=== PATIENT | female | born 1985 | race Caucasian/White ===

== ENCOUNTER 2024-01-28 14:00 | Emergency (ER) | payer OTHER, SELFPAY ==
[2024-01-28] VITALS (12 sets, daily range): BP systolic 111; BP diastolic 73; PULSE 73–107; RESP 16–23; TEMP 37.1; O2SAT 94–97; BMI 59.7
--- NOTE | 2024-01-28 14:25 | ECG_ITS ---
The [facility] Test Date: 2024-01-28 Pat Name: LILLY VALLEJO Department: Room: - Gender: Female [employer]: : 1985 Requested By: FRANCISCO BRYANT Order Number: [id number] Reading MD: MAHI RASMUSSEN Measurements Intervals [place] Rate: 94 P: 33 [place]: 150 QRS: 41 QRSD: 96 T: 67 QT: 346 QTc: 398 Interpretive Statements 1100 Sinus rhythm 9110 normal ECG No previous ECG available for comparison Electronically Signed On 01-28-2024 23:14:40 EDT by MAHI RASMUSSEN
--- NOTE | 2024-01-28 14:26 | ED.SOB1 ---
HPI - SOB/Dyspnea General Chief Complaint: Shortness of Breath/Dyspnea Stated Complaint: SHORTNESS OF BREATH Time Seen by Provider: 01/28/24 14:25 Source: patient Mode of arrival: walk-in Limitations: no limitations History of Present Illness HPI Narrative: 38 year old female presents to the ED for SOB. Onset was this morning. Denies fever, chills, sore throat, sinus congestion/drainage. Reports leg swelling. Denies dizziness, chest pain. Reports hx CHF, asthma, pacemaker. She takes Lasix 40 mg daily. MD elicited complaint: shortness of breath and cough Pertinent past history: asthma and congestive heart failure Related Data Home Medications Medication Instructions Recorded Confirmed albuterol sulfate 90 mcg/actuation inhalation 01/28/24 aerosol inhaler cariprazine 4.5 mg capsule 4.5 mg PO DAILY 01/28/24 01/28/24 (Vraylar) furosemide 40 mg tablet (Lasix) 40 mg PO BID 01/28/24 01/28/24 gabapentin 800 mg tablet mg 01/28/24 hydroxyzine HCl 50 mg tablet mg 01/28/24 ipratropium 0.5 mg-albuterol 3 mg ml inhalation 01/28/24 (2.5 mg base)/3 mL nebulization soln loratadine 10 mg tablet mg 01/28/24 meclizine 25 mg tablet mg 01/28/24 melatonin 10 mg tablet mg 01/28/24 metformin 500 mg tablet,extended mg PO 01/28/24 release 24 hr omeprazole 40 mg capsule,delayed mg 01/28/24 release potassium chloride 20 mEq 40 meq PO DAILY 01/28/24 01/28/24 tablet,extended release(part/cryst) tiotropium bromide 1.25 inhalation 01/28/24 mcg/actuation mist for inhalation (Spiriva Respimat) vilazodone 40 mg tablet (Viibryd) 40 mg PO DAILY 01/28/24 01/28/24 Allergies Allergy/AdvReac Type Severity Reaction Status Date / Time divalproex sodium Allergy Intermediate Rash Verified 01/28/24 14:08 [From Depakote] prazosin [From Minipress] Allergy Intermediate Rash Verified 01/28/24 14:08 Sulfa (Sulfonamide Allergy Intermediate Rash Verified 01/28/24 14:08 Antibiotics) sulfamethoxazole Allergy Intermediate Rash Verified 01/28/24 14:08 [From Bactrim] trimethoprim [From Bactrim] Allergy Intermediate Rash Verified 01/28/24 14:08 latex Allergy Intermediate Rash Uncoded 01/28/24 14:08 medical tape Allergy Intermediate Rash Uncoded 01/28/24 14:08 Review of Systems ROS Constitutional Denies: fever or chills Ears, nose, mouth, and throat Denies: throat pain, neck pain, nasal discharge or nasal congestion Cardiovascular Reports: swelling of feet/ankles; Denies: chest pain, palpitations or lightheadedness Respiratory Reports: shortness of breath and cough; Denies: wheezing or stridor Gastrointestinal Denies: abdominal pain, nausea, vomiting or diarrhea Genitourinary Denies: painful urination, urinary frequency or urinary urgency Musculoskeletal Denies: back pain or neck pain Integumentary/Breast Denies: rash PFSH PFSH Social History Smoking status: Current every day smoker Exam Constitutional Vital Signs, click to edit/add: Last Vital Signs Temp 98.7 F 01/28/24 14:12 Pulse 94 H 01/28/24 15:00 Resp 23 01/28/24 15:00 BP 111/73 01/28/24 14:12 Pulse Ox 96 01/28/24 15:00 O2 Del Method Room Air 01/28/24 14:12 Common normals: no apparent distress and oriented x3 General appearance: cooperative HENMT Nose: external nose normal Mouth: oral and palatal mucosa normal and lip normal Eye Common normals: conjunctivae normal and no scleral icterus Neck & C-Spine Common normals: supple Chest Chest: symmetrical chest wall rise Respiratory Common normals: normal respiratory effort, no use of accessory muscles and clear to auscultation bilaterally Effort & inspection: able to speak in complete sentences and symmetric chest movement Cardio Common normals: no JVD, regular rate and regular rhythm Extremity Common normals: normal capillary refill and no pedal edema Neuro Common normals: oriented x3 Sensorium/orientation: awake and alert Speech: speech normal Course Vital Signs Vital signs: Vital Signs Pulse Oximetry 94 L 01/28/24 14:03 Temperature 98.7 F 01/28/24 14:12 Pulse Rate 94 H 01/28/24 15:00 Respiratory Rate 23 01/28/24 15:00 Blood Pressure 111/73 01/28/24 14:12 Pulse Oximetry 96 01/28/24 15:00 Oxygen Delivery Method Room Air 01/28/24 14:12 MDM - SOB/Dyspnea MDM Narrative Medical decision making narrative: Chest x-ray was negative for acute findings. Covid-19 and influenza were negative. CBC, BMP, and BNP were unremarkable. Findings were discussed with the patient. Follow up with pcp for a recheck, further evaluation and treatment. Differential Diagnosis Differential diagnosis: Likely acute exacerbation of chronic obstructive airways disease, congestive heart failure, community acquired pneumonia, asthma with exacerbation and other (Influenza, Covid-19, viral illness) Medical Records Attestation: I reviewed the patient's medical records. Lab Data Attestation: I reviewed the patient's lab results. Labs: Lab Results 01/28/24 01/28/24 Range/Units 14:31 14:40 WBC 7.5 (4.0-11.0) 10^3/uL RBC 5.22 (4.20-5.40) 10^6/uL Hgb 14.2 (12.0-16.0) g/dL Hct 44.5 (36.0-48.0) % MCV 85.2 (81.0-99.0) fL MCH 27.2 (26.7-34.0) pg MCHC 31.9 (29.9-35.2) g/dL RDW 14.2 (11.0-15.0) % Plt Count 266 (150-450) 10^3/uL MPV 9.1 L (9.5-13.5) fL Neut % (Auto) 63.3 (43.0-75.0) % Lymph % (Auto) 27.5 (20.5-60.0) % [place] % (Auto) 5.5 (1.7-12.0) % Eos % (Auto) 2.9 (0.9-7.0) % Baso % (Auto) 0.5 (0.2-2.0) % Neut # (Auto) 4.8 (1.4-6.5) 10^3/uL Lymph # (Auto) 2.1 (1.2-3.8) 10^3/uL [place] # (Auto) 0.4 (0.3-0.8) 10^3/uL Eos # (Auto) 0.2 (0.0-0.7) 10^3/uL Baso # (Auto) 0.0 (0.0-0.1) 10^3/uL Abs Immat Gran (auto) 0.02 (0.00-0.03) 10^3/uL Imm/Tot Granulo (auto) 0.3 (0.0-0.5) % Sodium 143 (136-145) mmol/L Potassium 3.5 (3.5-5.1) mmol/L Chloride 104 (98-107) mmol/L Carbon Dioxide 29.3 (21.0-32.0) mmol/L Anion Gap 13.2 BUN 12.0 (7.0-18.0) mg/dL Creatinine 1.18 H (0.55-1.02) mg/dL Est GFR ( Amer) >60 (>=60) Est GFR (Non-Af Amer) 52 L (>=60) BUN/Creatinine Ratio 10.2 Glucose 121 H (74-106) mg/dL Calcium 9.1 (8.5-10.1) mg/dL NT-Pro-B Natriuret Pep 19.0 (<=450.0) pg/mL Influenza Type A Ag Negative Influenza Type B Ag Negative SARS-CoV-2 Ag (CV2AG) Negative (NEGATIVE) Imaging Data Chest x-ray: Attestation: I have reviewed the pertinent imaging results. Radiologist's impression: ITS Impressions Chest X-Ray 01/28/24 14:49 IMPRESSION: 1. Expiratory chest without acute cardiopulmonary disease. 2. Normal heart size and cardiac pacemaker. Electronically authenticated by: NADIA MATTHEW Date: 01/28/2024 14:59 ECG Data Attestation: ?I have reviewed the pertinent ECG results. (EKG was reviewed by the attending physician. It showed sinus rhythm at a rate of 94. No acute ST segment changes. ) Interpretation: Measurements Intervals [place] Rate: 94 P: 33 SD: 150 QRS: 41 QRSD: 96 T: 67 QT: 346 QTc: 398 Interpretive Statements 1100 Sinus rhythm 9110 normal ECG No previous ECG available for comparison Discharge Plan Discharge Stand Alone Forms: Portal Instructions Chief Complaint: Shortness of Breath/Dyspnea Clinical Impression: Dyspnea Patient Disposition: Home, Self-Care Time of Disposition Decision: 15:26 Condition: Good Mode of Transportation: Private Vehicle Prescriptions / Home Meds: No Action furosemide [Lasix] 40 mg tablet 40 mg PO BID Vraylar 4.5 mg capsule 4.5 mg PO DAILY potassium chloride 20 mEq tablet,ER particles/crystals 40 meq PO DAILY vilazodone [Viibryd] 40 mg tablet 40 mg PO DAILY Rx Instructions: must administer with a meal/food ipratropium-albuterol 0.5 mg-3 mg(2.5 mg base)/3 mL solution for nebulization INHALATION hydroxyzine HCl 50 mg tablet omeprazole 40 mg capsule,delayed release(DR/EC) gabapentin 800 mg tablet meclizine 25 mg tablet albuterol sulfate 90 mcg/actuation HFA aerosol inhaler INHALATION metformin 500 mg tablet extended release 24 hr PO loratadine 10 mg tablet melatonin 10 mg tablet Spiriva Respimat 1.25 mcg/actuation mist INHALATION Instructions: Dyspnea (ED) Additional Instructions: Return to the ER if your condition worsens. Referrals: FRANCISCO BRYANT [Primary Care Provider] - 1 week Discharge Date/Time: 01/28/24 15:35
[2024-01-28 14:49] LABS: Basophils Percent Auto 0.5 % (0.2-2.0); Eosinophils Absolute Auto 0.2 10^3/uL (0.0-0.7); Eosinophils Percent Auto 2.9 % (0.9-7.0); Hematocrit 44.5 % (36.0-48.0); Hemoglobin 14.2 g/dL (12.0-16.0); Immature Granulocytes Abs Auto 0.02 10^3/uL (0.00-0.03); Immature Granulocytes Pct Auto 0.3 % (0.0-0.5); Lymphocytes Absolute Auto 2.1 10^3/uL (1.2-3.8); Lymphocytes Percent Auto 27.5 % (20.5-60.0); Mean Corpuscular HGB Conc 31.9 g/dL (29.9-35.2); Mean Corpuscular Hemoglobin 27.2 pg (26.7-34.0); Mean Corpuscular Volume 85.2 fL (81.0-99.0); Mean Platelet Volume 9.1 fL (9.5-13.5); Monocytes Absolute Auto 0.4 10^3/uL (0.3-0.8); Monocytes Percent Auto 5.5 % (1.7-12.0); Neutrophils Absolute Auto 4.8 10^3/uL (1.4-6.5); Neutrophils Percent Auto 63.3 % (43.0-75.0); Platelet Count 266 10^3/uL (150-450); Red Blood Count 5.22 10^6/uL (4.20-5.40); Red Cell Distribution Width 14.2 % (11.0-15.0); White Blood Count 7.5 10^3/uL (4.0-11.0)
--- NOTE | 2024-01-28 14:49 | XR_ITS ---
The [address] [address] Patient Name: LILLY VALLEJO MRN: [id number] date: 1985 Sex: F Assigned Patient Location: ER Current Patient Location: ER Accession/Order Number: [id number] Exam Date: 01/28/2024 14:40 Report Date: 01/28/2024 14:59 At the request of: SHAYNA BERMUDEZ Procedure: XR chest 1V EXAM: CHEST 1 VIEW HISTORY: SOB TECHNIQUE: Chest, one view. COMPARISON: None. FINDINGS: Slightly low lung volumes. No focal consolidation, pleural effusion, or pneumothorax. Pulmonary vasculature is within normal limits. Cardiomediastinal silhouette is normal. Left pectoral cardiac pacemaker device is seen. XR/XR chest 1V IMPRESSION: 1. Expiratory chest without acute cardiopulmonary disease. 2. Normal heart size and cardiac pacemaker. Electronically authenticated by: NADIA MATTHEW Date: 01/28/2024 14:59
[2024-01-28] MEDS: ACETAMINOPHEN 500 MG TABLET 1000 MG PO (15:01)
[2024-01-28 15:15] LABS: Anion Gap 13.2; BUN Creatinine Ratio 10.2; Calcium 9.1 mg/dL (8.5-10.1); Carbon Dioxide 29.3 mmol/L (21.0-32.0); Chloride 104 mmol/L (98-107); Estimated GFR (African America >60 (>=60); Estimated GFR (Non-African Ame 52 (>=60); Glucose 121 mg/dL (74-106); Potassium 3.5 mmol/L (3.5-5.1); Sodium 143 mmol/L (136-145)
[2024-01-28 15:21] LABS: Influenza Virus A Antigen Negative; Influenza Virus B Antigen Negative; Internal Control Within Normal Limits; SARS-CoV-2 Ag NEGATIVE (NEGATIVE)
== END 2024-01-28 15:35 | disposition home or self-care (01) ==
PROVIDERS: Nurse Practitioner Family; Emergency Provider Emergency Medicine; PCP Family Medicine
DX: R06.00 Dyspnea, unspecified (principal); I50.9 Heart failure, unspecified; J45.909 Unspecified asthma, uncomplicated; F17.210 Nicotine dependence, cigarettes, uncomplicated; Z95.0 Presence of cardiac pacemaker; Z79.899 Other long term (current) drug therapy; Z79.84 Long term (current) use of oral hypoglycemic drugs; Z20.822 Contact with and (suspected) exposure to COVID-19
CPT/HCPCS: 36415; 71045; 80048; 83880; 85025; 87804; 87811; 93005; 99285

== ENCOUNTER 2024-02-09 13:17 | Emergency (ER) | payer OTHER, SELFPAY ==
[2024-02-09] VITALS (11 sets, daily range): BP systolic 109–110; BP diastolic 66–82; PULSE 66–94; RESP 14–27; TEMP 36.5; O2SAT 93–96; BMI 62.0
--- NOTE | 2024-02-09 13:21 | ECG_ITS ---
The [facility] Test Date: 2024-02-09 Pat Name: LILLY VALLEJO Department: Room: - Gender: Female [employer]: : 1985 Requested By: FRANCISCO BRYANT Order Number: [id number] Reading MD: MAHI RASMUSSEN Measurements Intervals [place] Rate: 70 P: 26 IA: 160 QRS: 42 QRSD: 92 T: 61 QT: 394 QTc: 416 Interpretive Statements 1100 Sinus rhythm 9110 normal ECG Compared to ECG 01/28/2024 14:19:21 No significant changes Electronically Signed On 02-09-2024 22:46:24 EDT by MAHI RASMUSSEN
--- NOTE | 2024-02-09 13:21 | XR_ITS ---
The [address] [address] Patient Name: LILLY VALLEJO MRN: [id number] date: 1985 Sex: F Assigned Patient Location: ER Current Patient Location: ER Accession/Order Number: [id number] Exam Date: 02/09/2024 14:05 Report Date: 02/09/2024 14:20 At the request of: EBONY WONG Procedure: XR chest 1V EXAMINATION: XR chest 1V HISTORY: Chest pain COMPARISON: 01/28/2024 TECHNIQUE: AP portable FINDINGS: LUNGS: Low lung volumes. The lungs are clear VASCULATURE: No increased pulmonary vasculature. PLEURA: No pneumothorax, effusion, or pleural thickening. CARDIAC: No cardiomegaly or cardiac silhouette abnormality. MEDIASTINUM: No visible mass or adenopathy. Left bipolar pacemaker BONES: No fracture or visible bone lesion. OTHER: Negative. XR/XR chest 1V IMPRESSION: Low volume exam, clear lungs Electronically authenticated by: MAXI VILLARREAL Date: 02/09/2024 14:20
--- NOTE | 2024-02-09 13:35 | ED_ITS ---
HPI - General Adult General Chief complaint: Chest Pain Stated complaint: CHEST PAIN Time Seen by Provider: 02/09/24 13:20 Source: patient Mode of arrival: ambulance History of Present Illness HPI narrative: Patient is a 38-year-old female who presents to the emergency department for the evaluation of chest pain. [facility] She states she has a history of CHF and has a pacemaker in place because my heart stops and then starts again . She does not currently have a funnel coater locally. She is not on blood thinners. She states she feels short of breath although she is noted to be breathing easily and speaking easily at initial interview. She denies any recent illness. She reports hot and cold chills but has not had objective fevers, cough, congestion. She states today she feels nauseous. Symptoms have been present for the last 3 hours constantly in the center of the chest. She was given aspirin and nitro by EMS as well as Zofran. She states she still feels very nauseous and continues to have pain in the center of the chest, nitro did not relieve it. She states she feels as though her legs and arms are swollen. She has had a previous hysterectomy. She does not take any medications for hypertension, high cholesterol. Related Data Home Medications ?Medication ?Instructions ?Recorded ?Confirmed albuterol sulfate 90 mcg/actuation inhalation 01/28/24 aerosol inhaler cariprazine 4.5 mg capsule 4.5 mg PO DAILY 01/28/24 01/28/24 (Vraylar) furosemide 40 mg tablet (Lasix) 40 mg PO BID 01/28/24 01/28/24 gabapentin 800 mg tablet mg 01/28/24 hydroxyzine HCl 50 mg tablet mg 01/28/24 ipratropium 0.5 mg-albuterol 3 mg ml inhalation 01/28/24 (2.5 mg base)/3 mL nebulization soln loratadine 10 mg tablet mg 01/28/24 meclizine 25 mg tablet mg 01/28/24 melatonin 10 mg tablet mg 01/28/24 metformin 500 mg tablet,extended mg PO 01/28/24 release 24 hr omeprazole 40 mg capsule,delayed mg 01/28/24 release potassium chloride 20 mEq 40 meq PO DAILY 01/28/24 01/28/24 tablet,extended release(part/cryst) tiotropium bromide 1.25 inhalation 01/28/24 mcg/actuation mist for inhalation (Spiriva Respimat) vilazodone 40 mg tablet (Viibryd) 40 mg PO DAILY 01/28/24 01/28/24 Previous Rx's ?Medication ?Instructions ?Recorded methylprednisolone 4 mg tablets in See Rx Instructions .Route 02/09/24 a dose pack (Medrol (Nadeem)) .COMPLEX #21 ea ondansetron 4 mg disintegrating 4 mg PO Q6H PRN nausea and 02/09/24 tablet vomiting #12 tabs Allergies Allergy/AdvReac Type Severity Reaction Status Date / Time divalproex sodium Allergy Intermediate Rash Verified 01/28/24 14:08 [From Depakote] prazosin [From Minipress] Allergy Intermediate Rash Verified 01/28/24 14:08 Sulfa (Sulfonamide Allergy Intermediate Rash Verified 01/28/24 14:08 Antibiotics) sulfamethoxazole Allergy Intermediate Rash Verified 01/28/24 14:08 [From Bactrim] trimethoprim [From Bactrim] Allergy Intermediate Rash Verified 01/28/24 14:08 latex Allergy Intermediate Rash Uncoded 01/28/24 14:08 medical tape Allergy Intermediate Rash Uncoded 01/28/24 14:08 [place] Allergy Mild Uncoded 02/09/24 13:20 Review of Systems ROS Constitutional Denies: fever or chills Ears, nose, mouth, and throat Denies: throat pain or nasal congestion Cardiovascular Denies: chest pain Respiratory Denies: shortness of breath or cough Gastrointestinal Denies: nausea or vomiting Musculoskeletal Denies: back pain Integumentary/Breast Denies: rash Neurological Denies: headache Hematologic/Lymphatic Denies: easy bruising or easy bleeding PFSH PFSH Social History Smoking status: Current every day smoker Exam Narrative Exam Narrative: Gen.: Awake, alert, in no distress, Morbidly obese Head: Normocephalic, atraumatic ENT: Moist mucous membranes Respiratory: No respiratory distress, lungs clear bilaterally Cardio: Regular rate and rhythm Extremities: Moves extremities equally, no Pitting edema Psych: Normal mood and affect Neuro: No focal neuro deficit Skin: Warm, dry, intact Constitutional Vital Signs, click to edit/add: Last Vital Signs Temp 97.7 F 02/09/24 13:20 Pulse 73 02/09/24 14:44 Resp 23 02/09/24 14:44 BP 110/82 02/09/24 14:44 Pulse Ox 96 02/09/24 14:44 O2 Del Method Room Air 02/09/24 13:20 Course Vital Signs Vital signs: Vital Signs Temperature 97.7 F 02/09/24 13:20 Pulse Rate 75 02/09/24 13:20 Respiratory Rate 20 02/09/24 13:20 Blood Pressure 109/66 02/09/24 13:20 Pulse Oximetry 96 02/09/24 13:20 Oxygen Delivery Method Room Air 02/09/24 13:20 Temperature 97.7 F 02/09/24 13:20 Pulse Rate 73 02/09/24 14:44 Respiratory Rate 23 02/09/24 14:44 Blood Pressure 110/82 02/09/24 14:44 Pulse Oximetry 96 02/09/24 14:44 Oxygen Delivery Method Room Air 02/09/24 13:20 Medical Decision Making MDM Narrative Medical decision making narrative: Patient treated with IV fluids, Toradol, Solu-Medrol. She received aspirin, nitro without relief and Zofran by EMS. Phenergan given for nausea. She reported itching to the back of her legs and was given additional IV Benadryl. She has no evidence of anaphylaxis. D-dimer was elevated, the remainder of the labs including 2 troponins are within normal limits. Chest x-ray and CT of the chest are unremarkable and she is discharged home back to the recovery center with a Medrol Dosepak and Phenergan. Follow-up with PCP and return to the ER if symptoms change or worsen Medical Records Medical records reviewed: Yes I reviewed the patient's medical records Lab Data Lab results reviewed: Yes I reviewed the patient's lab results Labs: Lab Results 02/09/24 02/09/24 Range/Units 13:32 15:40 WBC 9.0 (4.0-11.0) 10^3/uL RBC 4.54 (4.20-5.40) 10^6/uL Hgb 12.6 (12.0-16.0) g/dL Hct 40.1 (36.0-48.0) % MCV 88.3 (81.0-99.0) fL MCH 27.8 (26.7-34.0) pg MCHC 31.4 (29.9-35.2) g/dL RDW 15.3 H (11.0-15.0) % Plt Count 313 (150-450) 10^3/uL MPV 9.1 L (9.5-13.5) fL Neut % (Auto) 58.3 (43.0-75.0) % Lymph % (Auto) 30.5 (20.5-60.0) % [place] % (Auto) 5.8 (1.7-12.0) % Eos % (Auto) 4.8 (0.9-7.0) % Baso % (Auto) 0.4 (0.2-2.0) % Neut # (Auto) 5.3 (1.4-6.5) 10^3/uL Lymph # (Auto) 2.8 (1.2-3.8) 10^3/uL [place] # (Auto) 0.5 (0.3-0.8) 10^3/uL Eos # (Auto) 0.4 (0.0-0.7) 10^3/uL Baso # (Auto) 0.0 (0.0-0.1) 10^3/uL Abs Immat Gran (auto) 0.02 (0.00-0.03) 10^3/uL Imm/Tot Granulo (auto) 0.2 (0.0-0.5) % PT 9.9 (9.0-11.6) sec INR 0.93 APTT 32.2 (22.3-36.2) sec D-Dimer 0.90 H* (<=0.59) mg/L FEU Sodium 142 (136-145) mmol/L Potassium 4.2 (3.5-5.1) mmol/L Chloride 104 (98-107) mmol/L Carbon Dioxide 27.2 (21.0-32.0) mmol/L Anion Gap 15.0 BUN 16.0 (7.0-18.0) mg/dL Creatinine 1.31 H (0.55-1.02) mg/dL Est GFR ( Amer) 55 L (>=60) Est GFR (Non-Af Amer) 46 L (>=60) BUN/Creatinine Ratio 12.2 Glucose 121 H (74-106) mg/dL Calcium 8.8 (8.5-10.1) mg/dL Total Bilirubin 0.3 (0.2-1.0) mg/dL AST 28 (15-37) U/L ALT 50 (14-59) U/L Alkaline Phosphatase 77 (46-116) U/L Troponin I High Sens 4.9 5.2 (4.0-51.3) pg/mL NT-Pro-B Natriuret Pep 80.0 (<=450.0) pg/mL Total Protein 6.7 (6.4-8.2) g/dL Albumin 3.4 (3.4-5.0) g/dL Globulin 3.3 g/dL Albumin/Globulin Ratio 1.[address] scan - chest: Attestation: I have reviewed the pertinent imaging results. Radiologist's impression: ITS Impressions Chest X-Ray 02/09/24 13:21 IMPRESSION: Low volume exam, clear lungs Electronically authenticated by: MAXI VILLARREAL Date: 02/09/2024 14:20 Chest CTA 02/09/24 15:34 IMPRESSION:No evidence of pulmonary embolus or acute intrathoracic abnormality. Electronically authenticated by: GABE SHEA Date: 02/09/2024 15:55 ECG Data Attestation: I personally reviewed and interpreted this ECG as follows: (Normal sinus rhythm at a rate of 70, no acute ST elevation or ectopy. EKG reviewed by attending physician) Discharge Plan Discharge Stand Alone Forms: Portal Instructions Chief Complaint: Chest Pain Clinical Impression: Chest pain Patient Disposition: Home, Self-Care Time of Disposition Decision: 16:38 Condition: Good Prescriptions / Home Meds: New methylprednisolone [Medrol (Nadeem)] 4 mg tablets,dose pack See Rx Instructions .ROUTE .COMPLEX Qty: 21 0RF Rx Instructions: Taper as directed ondansetron 4 mg tablet,disintegrating 4 mg PO Q6H PRN (Reason: nausea and vomiting) Qty: 12 0RF No Action furosemide [Lasix] 40 mg tablet 40 mg PO BID Vraylar 4.5 mg capsule 4.5 mg PO DAILY potassium chloride 20 mEq tablet,ER particles/crystals 40 meq PO DAILY vilazodone [Viibryd] 40 mg tablet 40 mg PO DAILY Rx Instructions: must administer with a meal/food ipratropium-albuterol 0.5 mg-3 mg(2.5 mg base)/3 mL solution for nebulization INHALATION hydroxyzine HCl 50 mg tablet omeprazole 40 mg capsule,delayed release(DR/EC) gabapentin 800 mg tablet meclizine 25 mg tablet albuterol sulfate 90 mcg/actuation HFA aerosol inhaler INHALATION metformin 500 mg tablet extended release 24 hr PO loratadine 10 mg tablet melatonin 10 mg tablet Spiriva Respimat 1.25 mcg/actuation mist INHALATION Print Language: [place] Instructions: Chest Pain (ED) Referrals: FRANCISCO BRYANT [Primary Care Provider] - 1 week
[2024-02-09] MEDS: KETOROLAC TROMETHAMINE 30 MG/ML VIAL IVP (13:44)
[2024-02-09] MEDS: PROMETHAZINE HCL 25 MG in 0.9 % SODIUM CHLORIDE 50 ML 204 MG IV (13:44)
[2024-02-09] MEDS: METHYLPREDNISOLONE SOD SUCC PF 125 MG/2 ML VIAL IVP (13:44)
[2024-02-09 13:57] LABS: Basophils Percent Auto 0.4 % (0.2-2.0); Eosinophils Absolute Auto 0.4 10^3/uL (0.0-0.7); Eosinophils Percent Auto 4.8 % (0.9-7.0); Hematocrit 40.1 % (36.0-48.0); Hemoglobin 12.6 g/dL (12.0-16.0); Immature Granulocytes Abs Auto 0.02 10^3/uL (0.00-0.03); Immature Granulocytes Pct Auto 0.2 % (0.0-0.5); Lymphocytes Absolute Auto 2.8 10^3/uL (1.2-3.8); Lymphocytes Percent Auto 30.5 % (20.5-60.0); Mean Corpuscular HGB Conc 31.4 g/dL (29.9-35.2); Mean Corpuscular Hemoglobin 27.8 pg (26.7-34.0); Mean Corpuscular Volume 88.3 fL (81.0-99.0); Mean Platelet Volume 9.1 fL (9.5-13.5); Monocytes Absolute Auto 0.5 10^3/uL (0.3-0.8); Monocytes Percent Auto 5.8 % (1.7-12.0); Neutrophils Absolute Auto 5.3 10^3/uL (1.4-6.5); Neutrophils Percent Auto 58.3 % (43.0-75.0); Platelet Count 313 10^3/uL (150-450); Red Blood Count 4.54 10^6/uL (4.20-5.40); Red Cell Distribution Width 15.3 % (11.0-15.0)
[2024-02-09 14:22] LABS: INR 0.93; Partial Thromboplastin Time 32.2 sec (22.3-36.2); Prothrombin Time 9.9 sec (9.0-11.6)
[2024-02-09] MEDS: DIPHENHYDRAMINE HCL 50 MG/ML (1ML) VIAL 25 MG IV (14:32)
[2024-02-09 14:40] LABS: Alanine Aminotransferase 50 U/L (14-59); Albumin Level 3.4 g/dL (3.4-5.0); Alkaline Phosphatase 77 U/L (46-116); Aspartate Amino Transferase 28 U/L (15-37); BUN Creatinine Ratio 12.2; Bilirubin Total 0.3 mg/dL (0.2-1.0); Calcium 8.8 mg/dL (8.5-10.1); Carbon Dioxide 27.2 mmol/L (21.0-32.0); Chloride 104 mmol/L (98-107); Estimated GFR (African America 55 (>=60); Estimated GFR (Non-African Ame 46 (>=60); Globulin 3.3 g/dL; Glucose 121 mg/dL (74-106); Potassium 4.2 mmol/L (3.5-5.1); Sodium 142 mmol/L (136-145); Total Protein 6.7 g/dL (6.4-8.2); Troponin I High Sensitivity 4.9 pg/mL (4.0-51.3)
[2024-02-09] MEDS: ACETAMINOPHEN 500 MG TABLET 1000 MG PO (15:01)
[2024-02-09] MEDS: ORPHENADRINE 60 MG/ 2 ML VIAL IV (15:01)
--- NOTE | 2024-02-09 15:34 | CT_ITS ---
The [address] [address] Patient Name: LILLY VALLEJO MRN: [id number] date: 1985 Sex: F Assigned Patient Location: ER Current Patient Location: Accession/Order Number: [id number] Exam Date: 02/09/2024 15:20 Report Date: 02/09/2024 15:55 At the request of: EBONY WONG Procedure: CT angio chest EXAM: CT angio chest HISTORY: PE COMPARISON: None. TECHNIQUE: CT chest with intravenous contrast was performed with timing for the evaluation for pulmonary arteries. Multiplanar reformats were performed. MIP (maximum intensity projection) images or 3D post processing was performed. Dose reduction techniques were achieved by using automated exposure control and/or adjustment of mA and/or kV according to patient size and/or use of iterative reconstruction technique. FINDINGS: Lungs: No consolidation, pneumothorax, or effusion. Airways: Normal. Mediastinum: No adenopathy. Aorta: No aneurysm. Cardiac: Normal size. No pericardial effusion. Pulmonary vasculature: Diagnostic opacification of pulmonary arteries without evidence of pulmonary embolus. Normal morphology. Bones: No acute bony abnormality. Axilla: No adenopathy. Thyroid gland: No abnormality demonstrated on provided imaging. Soft tissues: Unremarkable. Upper abdomen: Hepatic steatosis Additional findings: None. CT/CT angio chest IMPRESSION:No evidence of pulmonary embolus or acute intrathoracic abnormality. Electronically authenticated by: GABE SHEA Date: 02/09/2024 15:55
[2024-02-09 16:13] LABS: Troponin I High Sensitivity 5.2 pg/mL (4.0-51.3)
== END 2024-02-09 16:49 | disposition home or self-care (01) ==
PROVIDERS: Physician Assistant; Emergency Provider Emergency Medicine; PCP Family Medicine
DX: R07.9 Chest pain, unspecified (principal); R11.0 Nausea; L29.9 Pruritus, unspecified; R79.1 Abnormal coagulation profile; Z95.0 Presence of cardiac pacemaker; I50.9 Heart failure, unspecified; Z90.710 Acquired absence of both cervix and uterus; Z79.899 Other long term (current) drug therapy; Z79.84 Long term (current) use of oral hypoglycemic drugs; F17.210 Nicotine dependence, cigarettes, uncomplicated
CPT/HCPCS: 36415; 71045; 71275; 80053; 83880; 84484; 85025; 85378; 85610; 85730; 93005; 96365; 96375; 99285; J2930; Q9967